=== PATIENT | male | born 1985 | race Caucasian/White ===

== ENCOUNTER 2016-06-27 23:38 | Emergency (ER) | payer OTHER ==
[~2016-06-27] VITALS: Ht 177.8 cm; Wt 78.9 kg
--- NOTE | 2016-06-28 00:14 | ED CARDIAC/CP/PALPITATIONS ---
History of Present Illness General Chief Complaint: Chest Pain Stated Complaint: CHEST PAIN PER PT X'S 2-3 HRS Source: patient Exam Limitations: no limitations Vital Signs & Intake/Output Vital Signs & Intake/Output Vital Signs Date Time Temp Pulse Resp B/P Pulse O2 O2 Flow FiO2 Ox Delivery Rate 06/28 0040 99.0 89 18 145/89 96 Room Air 06/28 0015 86 16 100 Room Air 06/27 2356 98 Room Air 06/27 2354 99.1 116 16 156/93 98 Room Air ED Intake and Output 06/28 0000 06/27 1200 Intake Total Output Total Balance Patient 174 lb Weight Allergies Coded Allergies: Penicillins (RASH 06/27/16) Reconcile Medications No Known Home Medications Triage Note: 31YO MALE TO RM 7 W/CO CP THAT BAGEN AT 2130 THAT IS INTERMITTENT. DENIESA ANY RADIATION. Triage Nurses Notes Reviewed? yes Onset: Abrupt Duration: hour(s):, gone now Timing: recent history Location: [facility] HPI: 31-year-old male comes into the emergency room with complaints of 5 episodes that lasted for a second each since 10 AM of some chest pain/left sided abdominal pain. Patient does not describe it as sharp. Just a discomfort. Patient denies any pain currently. Denies any shortness of breath nausea vomiting diaphoresis. Patient has no prior medical history or cardiac his history. No family history of coronary disease less than 55 years of age. Nonsmoker. Denies any drug use. Patient is asymptomatic at the moment but wanted to come in for reassurance to get an EKG because he has not seen a doctor in some years. (BAKARI IRIZARRY) Past History Travel History Traveled to [place] past 21 day No Medical History Any Pertinent Medical History? none Surgical History Surgical History: none Psychosocial History What is your primary language Tajik Tobacco Use: Never used ETOH Use: denies use Illicit Drug Use: denies illicit drug use Family History Comment: No coronary disease less than 55 years of age Hx Contributory? Yes (BAKARI IRIZARRY) Review of Systems Review of Systems Constitutional: Reports: no symptoms. EENTM: Reports: no symptoms. Respiratory: Reports: no symptoms. Cardiovascular: Reports: see HPI. GI: Reports: no symptoms. Genitourinary: Reports: no symptoms. Musculoskeletal: Reports: no symptoms. Skin: Reports: no symptoms. Neurological/Psychological: Reports: no symptoms. Hematologic/Endocrine: Reports: no symptoms. Immunologic/Allergic: Reports: no symptoms. All Other Systems: Reviewed and Negative (BAKARI IRIZARRY) Physical Exam Physical Exam General Appearance: well developed/nourished, no apparent distress, alert Head: atraumatic, normal appearance Eyes: Bilateral: normal appearance, EOMI. Ears, Nose, Throat: normal pharynx, normal ENT inspection, hearing grossly normal Neck: normal inspection, full range of motion Respiratory: normal breath sounds, no respiratory distress Cardiovascular: regular rate/rhythm Gastrointestinal: soft Back: normal inspection Extremities: normal inspection Neurologic/Psych: awake, alert, oriented x 3, normal gait, normal mood/affect Skin: intact, normal color Core Measures ACS in differential dx? Yes Severe Sepsis Present: No Septic Shock Present: No All Positive = PERC Ruled Out: Positive: age < 50 years, heart rate < 100 bpm, O2 sat > 94%, no hemoptysis, no hormone use, no prior DVT or PE, no unilateral leg swellin, no surgery/trauma w/ in 4w. Wells Criteria Score: 0 (ABKARI IRIZARRY) Progress Differential Diagnosis: AMI, aortic dissection, cholecystitis, CHF/pulm edema, costochondritis, hyperkalemia, musculoskeletal pain, myocarditis, pancreatitis, pericarditis, pneumothorax, pulmonary embolism, PUD/GERD, rib fracture, unstable angina Plan of Care: Orders Procedure Date/time Status EKG 06/27 2418 Active Initial ED EKG: normal intervals, normal p-waves, normal QRS complex, normal sinus rhythm, rate (90) Comments: 06/28/2016 12:19:39 AM Patient clinically looks well. Nontoxic-appearing. Upon evaluating the patient in the room he is in the high 80s on the monitor and therefore his PERC score is negative. At this time there is no suspicion for any type of acute cardiac event. case discussed with dr pichardo and he agrees with plan of care. Patient is going to follow-up with Dr. morse. Patient will return if he has any return of chest pain. He is asymptomatic at the moment. Nontoxic appearing upon discharge. Patient reports she is feeling very anxious when he initially arrived. (BAKARI IRIZARRY) Departure Departure Disposition: HOME OR SELF CARE Condition: Stable Clinical Impression Primary Impression: Atypical chest pain Referrals: PATIENT HAS NO PRIMARY CARE DR (PCP/Family) Additional Instructions: Follow-up with primary care Dr. provided. Return to emergency room if any concerns worsening symptoms. Return if you have any return of chest pain, shortness of breath, vomiting, sweating, or any other concerns worsening symptoms. Please go over all results of today's visit with your primary care doctor. Contact your primary care doctor to let them know you were here in the emergency room. There may be nonspecific findings which may not be related to your visit today here in the emergency room but may require further evaluation and chronic monitoring by your primary care doctor. If you had a laceration today the chance of foreign body always remains. You should follow-up with your primary care doctor for recheck in 3-5 days for a wound check. If you had an x-ray done there is a chance that a fracture could have been missed on initial read and you should follow-up with your primary care doctor for repeat x-rays if symptoms persist. If your blood pressure was elevated here in the emergency room please have rechecked by her primary care doctor within the next 48 hours by your primary care doctor. If you were prescribed a narcotic here in the emergency room or any type of controlled substances you're not allowed to drive while taking this medication or operate any type of heavy machinery. Narcotics can make you feel lightheaded dizziness nausea and can cause constipation. You may need to pickler helper a stool softener. Thank you for choosing [facility] emergency room. Please return to the emergency room immediately if you have any other concerns worsening of symptoms. Departure Forms: Customer Survey General Discharge Information Prescriptions: Current Visit Scripts No Known Home Medications (BAKARI IRIZARRY) PA/ENGINEER FIRST ASSISTANT Co-Sign Statement Statement: ED Attending supervision documentation- [] I saw and evaluated the patient. I have also reviewed all the pertinent lab results and diagnostic results. I agree with the findings and the plan of care as documented in the PA's/ENGINEER FIRST ASSISTANT's documentation. [X] I have reviewed the ED Record and agree with the PA's/ENGINEER FIRST ASSISTANT's documentation. [] Additions or exceptions (if any) to the PAs/ENGINEER FIRST ASSISTANT's note and plan are summarized below: [] (JAMAICA RIOS,DINA Daly) Critical Care Note Critical Care Note Critical Care Time: non-applicable (BAKARI IRIZARRY)
[2016-06-28 00:40] VITALS: BP 145/89
== END 2016-06-28 00:41 ==
LOC: ERH 23:38
DX: R07.89 Other chest pain (principal)
CPT/HCPCS: 93005; 93010